=== PATIENT | male | born 1995 | race African-American/Black ===

== ENCOUNTER 2017-06-23 11:44 | Emergency (ER) | payer BC, OTHER ==
[2017-06-23 11:49] VITALS: BP 161/87; PULSE 94; TEMP 98; BMI 25.7
--- NOTE | 2017-06-23 12:28 | PDOC ---
History of Present Illness - General Chief Complaint: Cold Symptoms Stated Complaint: COUGH Time Seen by Provider: 06/23/17 12:23 History Source: Patient Exam Limitations: No Limitations - History of Present Illness Initial Comments: CHIEF COMPLAINT: 22 y/o afebrile male with no significant PMH c/o dry/ congested cough on and off for the past 1 month. HISTORY OF PRESENT ILLNESS: The patient states his dry cough started 1 month ago along with some nasal congestion and sinus pressure. He has been taking Sudafed periodically with little relief. He did go on a cruise to the [facility] about 2.5 weeks ago and his symptoms resolved. However, when he returned home they started again. He denies f/c, SALAZAR, neck pain, night sweats, sore throat, earache, watery eyes, n/v/d, CP, SOB, abd pain, back pain, weakness , decrease in PO intake. The patient does have an appointment with Dr. Braga scheduled for this week. Vital signs on arrival are within normal limits. REVIEW OF SYSTEMS: GENERAL/CONSTITUTIONAL: No fever/chills. No weakness. No weight change. HEAD, EYES, EARS, NOSE AND THROAT: No change in vision. No ear pain or discharge. No sore throat. +sinus pressure and nasal congestion. CARDIOVASCULAR: No chest pain or shortness of breath. RESPIRATORY: +intermittent dry/congested cough. No wheezing. GASTROINTESTINAL: No abd pain, nausea, vomiting, diarrhea. GENITOURINARY: No dysuria, frequency, or change in urination. MUSCULOSKELETAL: No joint or muscle swelling or pain. No neck or back pain. SKIN: No rash or easy bruising. NEUROLOGIC: No headache, vertigo, loss of consciousness, or loss of sensation. PHYSICAL EXAM: GENERAL: The patient is awake, alert, and fully oriented, in no acute distress. He is very well appearing, ambulatory, in NAD or obvious discomfort. Congested voice. HEAD: Normal with no signs of trauma. Some TTP of frontal sinuses ENT: Pupils equal, round and reactive to light, extraocular movements intact, sclera anicteric, conjunctiva clear. Neck supple. LUNGS: Clear to auscultation bilaterally. Normal excursion. No respiratory distress or use of accessory muscles. CV: RRR, S1/S2, no MRG. Cap refill < 2 sec. ABDOMEN: Soft, non-distended, non-tender even to deep palpation, no hepatomegaly or splenomegaly, no masses. EXTREMITIES: Normal range of motion, no edema. NEUROLOGICAL: Normal speech, normal gait. CN II-XII grossly intact. PSYCH: Normal mood, normal affect. SKIN: Warm, dry, normal turgor, no rashes or lesions noted. Past History - Past Medical History Allergies/Adverse Reactions: Allergies Allergy/AdvReac Type Severity Reaction Status Date / Time No Known Allergies Allergy Verified 06/23/17 11:46 Home Medications: Ambulatory Orders NK [No Known Home Medication] 06/23/17 Other medical history: none - Psycho/Social/Smoking Cessation Hx Anxiety: No Suicidal Ideation: No Smoking History: Never smoked Have you smoked in the past 12 months: No Information on smoking cessation initiated: No Hx Alcohol Use: No Drug/Substance Use Hx: No Substance Use Type: None *Physical Exam - Vital Signs Last Vital Signs Temp Pulse Resp BP Pulse Ox 98.0 F 94 H 18 161/87 100 06/23/17 11:46 06/23/17 11:46 06/23/17 11:46 06/23/17 11:46 06/23/17 11:46 Medical Decision Making - Medical Decision Making A/P: 22 y/o male with seasonal allergies. Educated him on rebound congestion and need to take allergy medication consistently. Suggested OTC Claritin D daily for the next few weeks, steam heat to help with congestion, OTC cough medicine if needed and f/u with his doctor as scheduled. instructed the patient to return to the ER with any worsening or concerning symptoms. The patient verbalizes understanding of all instructions, has no further questions and is awaiting discharge. *DC/Admit/Observation/Transfer Diagnosis at time of Disposition: Nasal congestion Seasonal allergies Qualifiers: Chronicity: acute Allergic rhinitis trigger: unspecified Qualified Code(s): J30.2 - Other seasonal allergic rhinitis - Discharge Dispostion Disposition: HOME Condition at time of disposition: Good - Referrals Referrals: Anjali Braga MD [Primary Care Provider] - (Keep scheduled appointment) - Patient Instructions Printed Discharge Instructions: DI for Nasal Congestion, DI for Cough -- Adult Additional Instructions: Discharge Instructions: -Take over the counter 24 hour Claritin-D/Zyrtec-D or Lakeshia-D daily for the next 2 weeks -You can try taking over the counter cough medicine as well -Use steam heat to help with nasal congestion and sinus pressure -Drink at least 64oz of water daily -Keep follow up appointment scheduled for this week with Dr. Braga -Return to the ER with any worsening or concerning symptoms.
== END 2017-06-23 13:03 | disposition home or self-care (01) ==
LOC: JERFT 11:44
DX: J30.2 Other seasonal allergic rhinitis (principal)
CPT/HCPCS: 99281-25